=== PATIENT | female | born 1945 | race Caucasian/White ===

== ENCOUNTER 2021-12-14 11:58 | Inpatient (IN) | payer OTHER ==
[~2021-12-14] VITALS: Ht 157.5 cm; Wt 55.8 kg
[2021-12-14 13:00] VITALS: BP 88/49
[2021-12-14 13:15] VITALS: BP 107/54
[2021-12-14] MEDS ORDERED: BISACODYL 10 MG RECTAL RECTAL SUPPOSITORY PR PRN (13:15)
[2021-12-14] MEDS ORDERED: MAG HYDROX/AL HYDROX/SIMETH ES 30 ML SUSPENSION UDCUP PO PRN (13:15)
[2021-12-14] MEDS ORDERED: OxyCODONE HCL/ACETAMINOPHEN 10-325 MG TABLET PO PRN (13:15)
[2021-12-14] MEDS ORDERED: ALPRAZolam 0.5 MG TABLET PO PRN (13:15)
[2021-12-14] MEDS ORDERED: OxyCODONE HCL/ACETAMINOPHEN 5-325 MG TABLET PO PRN (13:15)
[2021-12-14] MEDS ORDERED: POLYETHYLENE GLYCOL 3350 17 GM PACKET PO PRN (13:15)
[2021-12-14] MEDS ORDERED: ACETAMINOPHEN 325 MG TABLET PO PRN (13:15)
[2021-12-14] MEDS ORDERED: MAGNESIUM HYDROXIDE SUSPENSION 30 ML UDCUP PO PRN (13:15)
[2021-12-14 13:20] VITALS: BP 107/54
[2021-12-14] MEDS: ACETAMINOPHEN 500 MG TABLET PO SCH ×2 (16:55→20:07)
[2021-12-14] MEDS: ASPIRIN 81 MG CHEWABLE TABLET PO SCH (20:05)
[2021-12-14] MEDS: DOCUSATE SODIUM 100 MG CAPSULE PO SCH (20:05)
[2021-12-14 20:11] VITALS: BP 94/53
[2021-12-14] MEDS: ETHYL ALCOHOL 62% ANTISEPTIC NASAL SANITIZER 0.6 ML AMPUL NASAL SCH (21:21)
[2021-12-14] MEDS ORDERED: OxyCODONE HCL 10 MG IR TABLET PO PRN (21:30)
[2021-12-14] MEDS ORDERED: OxyCODONE HCL 5 MG IR TABLET PO PRN (21:30)
[2021-12-15] MEDS: PANTOPRAZOLE SODIUM 40 MG DR TABLET PO SCH (06:40)
[2021-12-15] MEDS: DOCUSATE SODIUM 100 MG CAPSULE PO SCH ×2 (08:13→20:47)
[2021-12-15] MEDS: ASPIRIN 81 MG CHEWABLE TABLET PO SCH ×2 (08:13→20:47)
[2021-12-15] MEDS: ACETAMINOPHEN 500 MG TABLET PO SCH ×3 (08:14→20:47)
[2021-12-15] MEDS: ENOXAPARIN SODIUM 40 MG/0.4 ML PF SYRINGE SQ SCH (08:16)
[2021-12-15] MEDS: CELECOXIB 200 MG CAPSULE PO SCH (08:21)
[2021-12-15 08:37] LABS: BASOPHILS % (AUTO) 0.6 % (0.0-2.0); EOSINOPHILS % (AUTO) 0.3 % (1.0-6.0); HEMATOCRIT 27.9 % (36-46); HEMOGLOBIN 9.3 g/dL (12.0-16.0); LYMPHOCYTES # (AUTO) 1.4 K/uL (1.0-4.8); LYMPHOCYTES % (AUTO) 19.6 % (22.0-44.0); MEAN CORPUSCULAR HEMOGLOBIN 31.4 pg (26.0-34.0); MEAN CORPUSCULAR HGB CONC 33.3 G/dL (31.0-37.0); MEAN CORPUSCULAR VOLUME 94 fL (80-100); MONOCYTES # (AUTO) 0.5 K/uL (0.1-1.0); MONOCYTES % (AUTO) 7.3 % (2.0-9.0); NEUTROPHILS # (AUTO) 5.2 K/uL (1.8-7.7); NEUTROPHILS % (AUTO) 72.2 % (40.0-70.0); PLATELET COUNT (AUTO) 271 K/uL (150-450); RED BLOOD CELL COUNT(AUTO) 2.96 MIL/uL (4.00-5.20); RED CELL DISTRIBUTION WIDTH 14.1 % (11.5-14.5)
[2021-12-15 08:57] LABS: ALANINE AMINOTRANSFERASE 28 U/L (12-78); ALBUMIN 2.7 g/dL (3.4-5.0); ALKALINE PHOSPHATASE 75 U/L (46-116); ANION GAP 2 mmol/L (8-16); ASPARTATE AMINOTRANSFERASE 40 U/L (15-37); BILIRUBIN,TOTAL 0.3 mg/dL (0.1-1.0); CALCIUM, TOTAL 8.5 mg/dL (8.8-10.5); CARBON DIOXIDE 31 mmol/L (22-29); CHLORIDE 104 mmol/L (98-107); GLOMERULAR FILTR. RATE CALC > 60 mL/min (>60); GLUCOSE,RANDOM 109 mg/dL (70-110); POTASSIUM 3.9 mmol/L (3.5-5.1); SODIUM SERUM 137 mmol/L (136-145); TOTAL PROTEIN, SERUM 6.5 g/dL (6.4-8.2); UREA NITROGEN, BLOOD 8 mg/dL (7-18)
[2021-12-15 10:00] VITALS: BP 105/48
[2021-12-15] MEDS: ETHYL ALCOHOL 62% ANTISEPTIC NASAL SANITIZER 0.6 ML AMPUL NASAL SCH ×2 (10:50→20:46)
[2021-12-15] MEDS: CALCIUM CIT/VITAMIN D3 200 MG-250 UNITS[6.25MCG] TABLET PO SCH ×2 (10:58→20:47)
[2021-12-15] MEDS: LISINOPRIL 10 MG TABLET PO SCH (10:59)
[2021-12-15] MEDS ORDERED: SODIUM CL IRRIG SOLN BOTTLE 250 ML IRRIG ONE (15:14)
[2021-12-15 20:00] VITALS: BP 123/67
[2021-12-15] MEDS: SENNA 187 MG TABLET PO SCH (20:47)
[2021-12-16] MEDS: PANTOPRAZOLE SODIUM 40 MG DR TABLET PO SCH (06:13)
[2021-12-16 07:50] VITALS: BP 112/62
[2021-12-16] MEDS: CELECOXIB 200 MG CAPSULE PO SCH (09:18)
[2021-12-16] MEDS: ASPIRIN 81 MG CHEWABLE TABLET PO SCH ×2 (09:18→20:17)
[2021-12-16] MEDS: ETHYL ALCOHOL 62% ANTISEPTIC NASAL SANITIZER 0.6 ML AMPUL NASAL SCH ×2 (09:18→20:17)
[2021-12-16] MEDS: ACETAMINOPHEN 500 MG TABLET PO SCH ×3 (09:19→20:17)
[2021-12-16] MEDS: CALCIUM CIT/VITAMIN D3 200 MG-250 UNITS[6.25MCG] TABLET PO SCH ×2 (09:19→20:17)
[2021-12-16] MEDS: LISINOPRIL 10 MG TABLET PO SCH (09:19)
[2021-12-16] MEDS: DOCUSATE SODIUM 100 MG CAPSULE PO SCH ×2 (09:19→20:17)
[2021-12-16] MEDS: ENOXAPARIN SODIUM 40 MG/0.4 ML PF SYRINGE SQ SCH (09:20)
[2021-12-16] MEDS: SENNA 187 MG TABLET PO SCH (20:17)
[2021-12-16 20:30] VITALS: BP 115/57
[2021-12-16] MEDS: MELATONIN 3 MG TABLET PO PRN (23:12)
[2021-12-17] MEDS ORDERED: LISI-893 PO (03:30)
[2021-12-17] MEDS: PANTOPRAZOLE SODIUM 40 MG DR TABLET PO SCH (06:19)
[2021-12-17] MEDS: ASPIRIN 81 MG CHEWABLE TABLET PO SCH ×2 (07:28→21:33)
[2021-12-17] MEDS: ETHYL ALCOHOL 62% ANTISEPTIC NASAL SANITIZER 0.6 ML AMPUL NASAL SCH ×2 (07:28→21:31)
[2021-12-17] MEDS: CALCIUM CIT/VITAMIN D3 200 MG-250 UNITS[6.25MCG] TABLET PO SCH ×2 (07:28→21:32)
[2021-12-17] MEDS: ACETAMINOPHEN 500 MG TABLET PO SCH (07:28)
[2021-12-17] MEDS: LISINOPRIL 10 MG TABLET PO SCH (07:29)
[2021-12-17] MEDS: CELECOXIB 200 MG CAPSULE PO SCH (07:29)
[2021-12-17] MEDS: ENOXAPARIN SODIUM 40 MG/0.4 ML PF SYRINGE SQ SCH (07:30)
[2021-12-17] MEDS ORDERED: DOCUSATE SODIUM 100 MG CAPSULE PO SCH (09:00)
[2021-12-17 09:08] VITALS: BP 125/77
[2021-12-17] MEDS ORDERED: IBUP-2070 PO (12:41)
[2021-12-17 20:00] VITALS: BP 132/72
[2021-12-17] MEDS: DOCUSATE SODIUM 250 MG CAPSULE PO SCH (21:32)
[2021-12-17] MEDS: SENNA 187 MG TABLET PO SCH (21:32)
[2021-12-17] MEDS: MELATONIN 3 MG TABLET PO PRN (21:33)
[2021-12-18] MEDS ORDERED: CELE200 PO (05:32)
[2021-12-18] MEDS ORDERED: CALC-840 PO (05:32)
[2021-12-18] MEDS ORDERED: DOCU-350 PO (05:32)
[2021-12-18] MEDS ORDERED: PANT-31 PO (05:32)
[2021-12-18] MEDS ORDERED: ASPI-1450 PO (05:33)
[2021-12-18] MEDS: PANTOPRAZOLE SODIUM 40 MG DR TABLET PO SCH (06:06)
[2021-12-18 08:03] VITALS: BP 129/75
[2021-12-18] MEDS: ENOXAPARIN SODIUM 40 MG/0.4 ML PF SYRINGE SQ SCH (08:17)
[2021-12-18] MEDS: ETHYL ALCOHOL 62% ANTISEPTIC NASAL SANITIZER 0.6 ML AMPUL NASAL SCH ×2 (08:17→21:36)
[2021-12-18] MEDS: ASPIRIN 81 MG CHEWABLE TABLET PO SCH ×2 (08:18→20:53)
[2021-12-18] MEDS: CALCIUM CIT/VITAMIN D3 200 MG-250 UNITS[6.25MCG] TABLET PO SCH ×2 (08:18→20:54)
[2021-12-18] MEDS: DOCUSATE SODIUM 250 MG CAPSULE PO SCH ×2 (08:18→20:54)
[2021-12-18] MEDS: LISINOPRIL 10 MG TABLET PO SCH (08:18)
[2021-12-18] MEDS: CELECOXIB 200 MG CAPSULE PO SCH (08:19)
[2021-12-18 20:15] VITALS: BP 104/53
[2021-12-18] MEDS: MELATONIN 3 MG TABLET PO PRN (20:54)
[2021-12-18] MEDS: SENNA 187 MG TABLET PO SCH (20:54)
[2021-12-18] MEDS: TraMADol HCL 50 MG TABLET PO PRN (20:55)
[2021-12-19] MEDS: PANTOPRAZOLE SODIUM 40 MG DR TABLET PO SCH (06:36)
[2021-12-19] MEDS: FERROUS SULFATE 325 MG EC TABLET PO SCH (08:27)
[2021-12-19] MEDS: ASPIRIN 81 MG CHEWABLE TABLET PO SCH ×2 (08:32→21:17)
[2021-12-19] MEDS: CALCIUM CIT/VITAMIN D3 200 MG-250 UNITS[6.25MCG] TABLET PO SCH ×2 (08:32→21:18)
[2021-12-19] MEDS: CELECOXIB 200 MG CAPSULE PO SCH (08:32)
[2021-12-19] MEDS: LISINOPRIL 10 MG TABLET PO SCH (08:32)
[2021-12-19] MEDS: DOCUSATE SODIUM 250 MG CAPSULE PO SCH ×2 (08:32→21:17)
[2021-12-19] MEDS: ENOXAPARIN SODIUM 40 MG/0.4 ML PF SYRINGE SQ SCH (08:33)
[2021-12-19] MEDS: ETHYL ALCOHOL 62% ANTISEPTIC NASAL SANITIZER 0.6 ML AMPUL NASAL SCH ×2 (08:39→21:17)
[2021-12-19 10:46] VITALS: BP 111/67
[2021-12-19] MEDS: TraMADol HCL 50 MG TABLET PO PRN (10:46)
[2021-12-19] MEDS ORDERED: ENOX40SY14 SQ (12:03)
[2021-12-19] MEDS ORDERED: FERR325T27 PO (12:03)
[2021-12-19] MEDS ORDERED: CELE200 PO (12:03)
[2021-12-19] MEDS ORDERED: LISI-893 PO (12:03)
[2021-12-19] MEDS ORDERED: POLY17PO47 PO (12:03)
[2021-12-19] MEDS ORDERED: DOCU-350 PO (12:03)
[2021-12-19] MEDS ORDERED: CALC1TAB84 PO (12:03)
[2021-12-19] MEDS ORDERED: ASPI81 PO (12:03)
[2021-12-19] MEDS ORDERED: PANT-31 PO (12:03)
[2021-12-19 20:00] VITALS: BP 100/56
[2021-12-19] MEDS: MELATONIN 3 MG TABLET PO PRN (21:17)
[2021-12-19] MEDS: SENNA 187 MG TABLET PO SCH (21:17)
[2021-12-20] MEDS: PANTOPRAZOLE SODIUM 40 MG DR TABLET PO SCH (06:48)
[2021-12-20 07:40] VITALS: BP 114/60
[2021-12-20] MEDS: FERROUS SULFATE 325 MG EC TABLET PO SCH (08:34)
[2021-12-20] MEDS: LISINOPRIL 10 MG TABLET PO SCH (08:34)
[2021-12-20] MEDS: CELECOXIB 200 MG CAPSULE PO SCH (08:34)
[2021-12-20] MEDS: DOCUSATE SODIUM 250 MG CAPSULE PO SCH (08:34)
[2021-12-20] MEDS: ETHYL ALCOHOL 62% ANTISEPTIC NASAL SANITIZER 0.6 ML AMPUL NASAL SCH (08:34)
[2021-12-20] MEDS: ASPIRIN 81 MG CHEWABLE TABLET PO SCH (08:35)
[2021-12-20] MEDS: ENOXAPARIN SODIUM 40 MG/0.4 ML PF SYRINGE SQ SCH (08:35)
[2021-12-20] MEDS: CALCIUM CIT/VITAMIN D3 200 MG-250 UNITS[6.25MCG] TABLET PO SCH (08:36)
== END 2021-12-20 11:10 | disposition home or self-care (01) | DRG 948 ==
LOC: 2WR 12:37
PROVIDERS: ADMIT Physical Medicine & Rehabilitation; ATTEND Physical Medicine & Rehabilitation
DX: G89.18 Other acute postprocedural pain (principal); E46 Unspecified protein-calorie malnutrition; D62 Acute posthemorrhagic anemia; I10 Essential (primary) hypertension; K59.00 Constipation, unspecified; E83.51 Hypocalcemia; Z68.22 Body mass index [BMI] 22.0-22.9, adult
CPT/HCPCS: 80053; 85025; 87081; 97110; 97116; 97163; 97530; 97535; 99366; J1650; Q9967